=== PATIENT | male | born 1985 | race Caucasian/White ===

== ENCOUNTER 2021-08-31 00:45 | Emergency (ER) | payer OTHER ==
[~2021-08-31] VITALS: Ht 188 cm; Wt 73.5 kg
[2021-08-31 01:40] LABS: ABSOLUTE NEUTROPHILS 1.9 thou/uL (1.4-8.2); BASOPHILS 0.4 % (0.0-2.0); HEMATOCRIT 45.8 % (42.0-52.0); HEMOGLOBIN 15.6 gm/dL (14.0-18.0); LYMPHOCYTES 43.6 % (24.0-44.0); MCH 28.9 pg (26.0-34.0); MCV 84.9 fL (80.0-100.0); MONOCYTES 13.1 % (1.0-8.0); PLATELET COUNT 213 thou/uL (150-400); POLYS 40.9 % (36.0-66.0); RDW 13.2 % (10.5-14.5); WBC 4.8 thou/uL (4.0-11.0)
[2021-08-31 01:41] LABS: URINE BILIRUBIN NEGATIVE (Negative); URINE BLOOD NEGATIVE (Negative); URINE CLARITY CLEAR; URINE COLOR YELLOW; URINE GLUCOSE-RANDOM* NEGATIVE (Negative); URINE KETONES NEGATIVE (Negative); URINE LEUKOCYTES-REFLEX NEGATIVE (Negative); URINE NITRITE-REFLEX NEGATIVE (Negative); URINE PROTEIN (DIPSTICK) NEGATIVE (Negative); URINE SPECIFIC GRAVITY 1.025 (1.005-1.035)
[2021-08-31 01:47] LABS: CALCIUM 9.2 mg/dL (8.5-10.1); POTASSIUM 3.8 mmol/L (3.5-5.1)
[2021-08-31 01:53] LABS: ALBUMIN 4.4 g/dL (3.4-5.0); TOTAL BILIRUBIN 0.6 mg/dL (0.2-1.0); TOTAL PROTEIN 7.7 g/dL (6.4-8.2)
[2021-08-31] MEDS ORDERED: CYCLOBENZAPRINE5 MG PO (02:27)
[2021-08-31 02:54] VITALS: BP 138/50
== END 2021-08-31 02:56 | disposition home or self-care (01) ==
LOC: ER 00:45
PROVIDERS: Emergency Medicine
DX: R10.31 Right lower quadrant pain (principal); M54.50 Low back pain, unspecified